=== PATIENT | male | born 1995 | race Two or more races ===

== ENCOUNTER 2021-12-21 20:19 | Emergency (ER) | payer OTHER ==
[2021-12-21] MEDS ORDERED: SODIUM CHLORIDE 0.9% 1,000 ML IV STA (21:35)
[2021-12-21] MEDS ORDERED: LOPERAMIDE 2 MG CAPSULE PO STA ×2 (21:40→23:23)
[2021-12-21 22:02] LABS: BASOPHILS % (AUTO) 0.1 %; HCT - HEMATOCRIT 53.3 % (42.0-52.0); HGB - HEMOGLOBIN 17.7 g/dL (14.0-18.0); LYMPHOCYTES # (AUTO) 0.8 10^3/uL (1.5-3.5); LYMPHOCYTES % (AUTO) 9.2 %; MEAN CORPUSCULAR HEMOGLOBIN 27.8 pg (27.0-31.0); MEAN CORPUSCULAR HGB CONC 33.2 g/dL (32.0-36.0); MEAN CORPUSCULAR VOLUME 83.7 fL (80.0-94.0); MEAN PLATELET VOLUME 9.9 fL (7.4-11.4); MONOCYTES # (AUTO) 0.8 10^3/uL (0.0-1.0); MONOCYTES % (AUTO) 9.5 %; NEUTROPHILS % (AUTO) 80.9 %; PLT - PLATELET COUNT 263 10^3/uL (130-450); RED BLOOD COUNT 6.37 10^6/uL (4.70-6.10); RED CELL DISTRIBUTION WIDTH 14.3 % (12.0-15.0); WHITE BLOOD COUNT 8.6 x10^3/uL (4.8-10.8)
[2021-12-21 22:16] LABS: ALBUMIN 4.7 g/dL (3.2-5.5); ALBUMIN/GLOBULIN RATIO 1.2 (1.0-2.2); BILIRUBIN,TOTAL 1.1 mg/dL (0.2-1.0); CREATININE 0.9 mg/dL (0.6-1.2); POTASSIUM 3.5 mmol/L (3.5-5.0); TOTAL PROTEIN 8.6 g/dL (6.7-8.2)
--- NOTE | 2021-12-21 23:27 | ED Physician Documentation ---
PD HPI NVD - Stated complaint Stated Complaint: DIARRHEA - Chief complaint Chief Complaint: Abd Pain - Additonal information Additional information: Patient is a 26-year-old male with diarrhea since 3 this morning. Patient reports numerous amounts of loose watery stools through the day. He reports some cramping prior to having a bowel movement. Anytime he tries to eat or drink anything he immediately feels the need to have a bowel movement. No blood. He did try Pepto-Bismol without any improvement. He otherwise denies abdominal pain, no nausea no vomiting. No fevers, no sick contacts. Cannot recall anything food related that would have caused his symptoms, no recent travel or antibiotic use. Review of Systems Constitutional: denies: Fever Nose: denies: Congestion Cardiac: denies: Chest pain / pressure, Palpitations Respiratory: denies: Dyspnea, Cough GI: reports: Diarrhea. denies: Abdominal Pain, Nausea, Vomiting, Bloody / black stool : denies: Dysuria Skin: denies: Rash Musculoskeletal: denies: Back pain Neurologic: denies: Headache PD PAST MEDICAL HISTORY - Present Medications Home Medications: Ambulatory Orders Medication Instructions Recorded Confirmed Loperamide [Imodium] 2 mg PO Q3HR PRN #20 tab 12/21/21 - Allergies Allergies/Adverse Reactions: Allergies Allergy/AdvReac Type Severity Reaction Status Date / Time No Known Drug Allergies Allergy Verified 12/21/21 20:24 PD ED PE NORMAL - General General: Alert and oriented X 3, No acute distress, Well developed/nourished - HEENT HEENT: Atraumatic, Moist mucous membranes - Cardiac Cardiac: No murmur, Strong equal pulses, Other (Tachycardic, regular rhythm) - Respiratory Respiratory: No respiratory distress, Clear bilaterally - Abdomen Abdomen: Soft, Non tender, Non distended, Other (Hyperactive bowel sounds) - Back Back: No CVA TTP - Derm Derm: Normal color - Extremities Extremities: No edema - Neuro Neuro: No motor deficit, Normal speech - Psych Psych: Normal mood, Normal affect Results - Vitals Vitals: Vital Signs - 24 hr 12/21/21 12/21/21 12/22/21 20:24 22:27 00:00 Temperature 36.6 C Heart Rate 110 H 100 109 H Respiratory 21 16 16 Rate Blood Pressure 155/125 H 148/90 H 153/105 H O2 Saturation 96 96 97 12/22/21 00:16 Temperature Heart Rate 104 H Respiratory 16 Rate Blood Pressure 155/110 H O2 Saturation 97 Oxygen O2 Source Room air - Labs Labs: Laboratory Tests 12/21/21 12/21/21 21:56 21:56 WBC 8.6 RBC 6.37 H Hgb 17.7 Hct 53.3 H MCV 83.7 MCH 27.8 MCHC 33.2 RDW 14.3 Plt Count 263 MPV 9.9 Neut # (Auto) 7.0 H Lymph # (Auto) 0.8 L [place] # (Auto) 0.8 Eos # (Auto) 0.0 Baso # (Auto) 0.0 Absolute Nucleated RBC 0.00 Nucleated RBC % 0.0 Sodium 134 L Potassium 3.5 Chloride 105 Carbon Dioxide 18 L Anion Gap 11.0 BUN 13 Creatinine 0.9 Estimated GFR (MDRD) 102 Glucose 115 H Calcium 9.0 Total Bilirubin 1.1 H AST 35 ALT 49 Alkaline Phosphatase 111 Total Protein 8.6 H Albumin 4.7 Globulin 3.9 Albumin/Globulin Ratio 1.2 Lipase 30 PD MEDICAL DECISION MAKING - ED course Complexity details: reviewed results, d/w patient ED course: Patient with multiple episodes of loose watery stools, no tenderness on exam. Patient is mildly tachycardic and was rehydrated with IV fluids with improvement. Labs are reassuring. Abdominal exam remains benign. Stool culture was sent. Patient without risk factors for C. difficile.Patient started on loperamide and instructed to continue with hydration. He is aware of return precautions. Departure - Departure Disposition: 01 Home, Self Care Clinical Impression: Diarrhea Qualifiers: Diarrhea type: unspecified type Qualified Code(s): R19.7 - Diarrhea, unspecified Condition: Stable Instructions: ED Diet Vomiting Diarrhea Prescriptions: Loperamide [Imodium] 2 mg PO Q3HR PRN #20 tab PRN Reason: Diarrhea Comments: You were evaluated for diarrhea and dehydration. Fortunately your labs are very reassuring. Your abdomen was not tender and I do not think we need abdominal pictures at this time. You did receive IV fluids for hydration and were given a medication to help with the diarrhea called loperamide or Imodium. I will send a prescription for this medication to [facility] in [place]. Please continue with hydration. Your symptoms should be expected to improve in the next 24 hours. If anytime you have worsening symptoms or development of abdominal pain, please return to the emergency department. We will send a stool culture if you are able to give a sample To see if there is a bacterial infection. Forms: Activity restrictions Discharge Date/Time: 12/22/21 00:20
[2021-12-22 00:19] VITALS: BP 155/110
== END 2021-12-22 00:20 | disposition home or self-care (01) ==
LOC: ED 20:19 → EDBD 20:19 → ED 12-22 00:20
DX: R19.7 Diarrhea, unspecified (principal); E86.0 Dehydration
CPT/HCPCS: 36415; 80053; 81599; 83690; 85025; 96360; 99282; 99284; A9270; 87045; 87046